=== PATIENT | female | born 1990 | race African-American/Black ===

== ENCOUNTER 2017-10-07 02:51 | Emergency (ER) | payer SELFPAY ==
[~2017-10-07] VITALS: Ht 162.6 cm; Wt 52.2 kg
[2017-10-07 02:51] VITALS: BP 126/77
== END 2017-10-07 03:34 ==
LOC: ER 02:53
DX: S60.221A Contusion of right hand, initial encounter (principal); Y04.2XXA Assault by strike against or bumped into by another person, initial encounter; Y93.89 Activity, other specified; Y92.89 Other specified places as the place of occurrence of the external cause; Y99.8 Other external cause status
CPT/HCPCS: 73130-TC; A4606; Z7610